=== PATIENT | male | born 1955 | race Caucasian/White ===

== ENCOUNTER 2022-09-29 12:34 | Outpatient (RCR) | payer BC, SELFPAY ==
[2022-09-29 13:30] LABS: Creatinine* 0.8 mg/dL (0.5-1.5); Est. Creatinine Clearance* 54.78; Estimated Glomerular Filt Rate 98 ml/min
== END 2023-03-28 23:59 | disposition home or self-care (01) ==
LOC: CCIC 12:34
PROVIDERS: PCP Family Medicine; Visit Provider Internal Medicine
DX: C13.9 Malignant neoplasm of hypopharynx, unspecified (principal)
CPT/HCPCS: 36415; 36591; 82565